=== PATIENT | female | born 1955 | race Caucasian/White ===

== ENCOUNTER 2020-04-28 07:26 | Outpatient (REF) | payer OTHER, SELFPAY ==
--- NOTE | 2020-04-28 07:32 | MM_ITS ---
EXAMINATION: MM SCREENING DIGITAL BREAST TOMOSYNTHESIS, BILATERAL CLINICAL INFORMATION: Screening. Asymptomatic. Status post right breast lumpectomy. COMPARISON: Mammography: October 05, 2018 and studies dating back to June 04, 2011 TECHNIQUE: Digital breast tomosynthesis is performed in both the craniocaudal and mediolateral oblique views along with computer-aided detection (CAD). Synthesized 2D images are generated from the tomosynthesis. FINDINGS: The breasts are heterogeneously dense, which may obscure small masses (ACR BI-RADS breast composition Category c). There are no significant masses, abnormal calcifications, or other abnormalities. Architectural distortion and clips from previous right breast surgery again noted. IMPRESSION: There are no significant changes from prior study. ASSESSMENT: BI-RADS 2: Benign RECOMMENDATION: Routine annual mammography screening. This patient's information was entered into a reminder system with a target due date for their next mammogram.
== END 2020-04-28 07:27 | disposition home or self-care (01) ==
LOC: HO.MAMMO 07:26
PROVIDERS: PCP Physician Assistant; Visit Provider Physician Assistant
DX: Z12.31 Encounter for screening mammogram for malignant neoplasm of breast (principal)
CPT/HCPCS: 77063; 77067

== ENCOUNTER 2020-12-22 14:17 | Outpatient (REF) | payer MEDICARE, SELFPAY ==
--- NOTE | ~2020-12-22 | XR_ITS ---
EXAMINATION: XR SHOULDER, RIGHT CLINICAL INFORMATION: Right shoulder pain COMPARISON: None TECHNIQUE: AP external rotation, Grashey, scapular Y, and axillary views of the right shoulder. FINDINGS: Bone alignment is normal. No fracture or dislocation is seen. The glenohumeral joint is normal. There is arthritis at the acromioclavicular joint. There is a clip in the right axilla. Soft tissues are otherwise unremarkable. XR/XR shoulder RT min 2V IMPRESSION: Arthritis at the acromioclavicular joint.
--- NOTE | ~2020-12-22 | US_ITS ---
EXAMINATION: US DIAGNOSTIC ULTRASOUND BREAST, RIGHT CLINICAL INFORMATION: Pain. COMPARISON: Mammography of same day and studies dating back to June 04, 2011. TECHNIQUE: Ultrasound of the breast is performed with real-time maurer scale imaging and color Doppler. FINDINGS: Targeted right breast ultrasound to region of pain in the retroareolar and 10:00 location performed. Scanning was performed at the 4:00 position where patient also had pain. No abnormal cystic or solid masses identified. No edematous change within the breast is seen. Other than for the surgical site no region of abnormal distal sound shadowing was appreciated.. Results are discussed with the patient at time of visit. US/US breast RT limited IMPRESSION: There are no significant changes from prior study. ASSESSMENT: BI-RADS 2: Benign RECOMMENDATION: 1. Patient should be managed based on the clinical impression. 2. Otherwise, routine annual screening mammography. .
--- NOTE | ~2020-12-22 | XR_ITS ---
EXAMINATION: XR CHEST CLINICAL INFORMATION: Chest pain COMPARISON: Previous chest x-ray November 2014 TECHNIQUE: 2 views of the chest were obtained. FINDINGS: The cardiac and mediastinal contours are stable. The lungs are clear. There is no pleural effusion or pneumothorax. There are degenerative changes of the thoracic spine and mild curvature of the midthoracic spine to the right. XR/XR chest 2V IMPRESSION: No evidence for acute disease in the chest.
--- NOTE | ~2020-12-22 | MM_ITS ---
EXAMINATION: MM DIAGNOSTIC DIGITAL BREAST TOMOSYNTHESIS, RIGHT Targeted right breast ultrasound CLINICAL INFORMATION: Right breast pain on the nipple. History of right breast cancer. COMPARISON: Mammography: 04/28/2020 and studies dating back to 06/04/2011. TECHNIQUE: Digital breast tomosynthesis is performed in both the craniocaudal and mediolateral oblique views along with computer-aided detection (CAD). Synthesized 2D images are generated from the tomosynthesis. Additional right exaggerated craniocaudal view performed. Targeted right breast ultrasound FINDINGS: The breasts are heterogeneously dense, which may obscure small masses (ACR BI-RADS breast composition Category c). Patient is status post previous right breast lumpectomy with clips and architectural distortion about the central inferior right breast. No new abnormal dominant mass or suspicious grouping of microcalcifications is identified. Targeted right breast ultrasound to region of pain in the retroareolar and 10 o'clock location performed. Scanning was performed at the 4 o'clock position where patient also had pain. No abnormal cystic or solid masses identified. No edematous change within the breast is seen. Other than for the surgical site no region of abnormal distal sound shadowing was appreciated.. Results are discussed with the patient at time of visit. MM/MM tomosynthesis diagnostic RT IMPRESSION: There are no significant changes from prior study. ASSESSMENT: BI-RADS 2: Benign RECOMMENDATION: 1. Patient should be managed based on the clinical impression. 2. Otherwise, routine annual screening mammography. This patient's information was entered into a reminder system with a target due date for their next mammogram.
== END 2020-12-22 14:18 | disposition home or self-care (01) ==
LOC: HO.MAMMO 14:17
PROVIDERS: PCP Physician Assistant; Visit Provider Internal Medicine Medical Oncology
DX: N64.4 Mastodynia (principal); R07.9 Chest pain, unspecified; M25.511 Pain in right shoulder; Z80.3 Family history of malignant neoplasm of breast
CPT/HCPCS: 71046; 73030; 76642; 77061; 77065

== ENCOUNTER 2021-10-26 10:38 | Outpatient (REF) | payer MEDICARE, SELFPAY ==
[2021-10-26 11:35] LABS: Hematocrit 47.6 % (37.0-47.0); Hemoglobin 15.1 g/dl (12.0-16.0); Mean Corpuscular HGB Conc 31.7 g/dl (31.0-35.0); Mean Corpuscular Hemoglobin 27.9 pg (27.0-33.0); Mean Corpuscular Volume 87.8 fL (80.0-98.0); Mean Platelet Volume 9.7 fL (9.4-12.3); Platelet Count 252 X10*3/uL (160-400); Red Blood Count 5.42 X10*6/uL (4.20-5.50); Red Cell Distribution Width 14.3 % (11.0-16.0); White Blood Count 5.7 X10*3/uL (4.8-10.8)
[2021-10-26 12:14] LABS: Creatinine Urine 113.49 mg/dL; Microalbum/Creatinine Ratio Ur 6.1 ug/mg cr
[2021-10-26 12:23] LABS: Alanine Aminotransferase 62 U/L (0-31); Albumin Level 4.4 g/dL (3.5-5.0); Alkaline Phosphatase 76 U/L (39-117); Anion Gap 14 (12-20); Aspartate Amino Transferase 38 U/L (5-31); Bilirubin Total 0.7 mg/dL (0.0-1.0); Blood Urea Nitrogen 8 mg/dL (9-16); Calcium 9.9 mg/dL (8.4-10.2); Carbon Dioxide 26 mmol/L (22-29); Chloride 107 mmol/L (96-108); Cholesterol 221 mg/dL; Estimated Glomerular Filt Rate > 60; Glucose Fasting 95 mg/dL (60-99); HDL Cholesterol 55 mg/dL; LDL Cholesterol Calculated 123 mg/dl; Potassium 5.2 mmol/L (3.3-5.1); Sodium 142 mmol/L (135-145); Total Protein 7.3 g/dL (6.5-8.0); Triglycerides 216 mg/dL
[2021-10-26 12:33] LABS: TSH reflex Free T4 1.05 uIU/mL (0.32-4.0)
== END 2021-10-26 10:39 | disposition home or self-care (01) ==
LOC: HO.LAB 10:38
PROVIDERS: PCP Physician Assistant; Visit Provider Physician Assistant
DX: I10 Essential (primary) hypertension (principal)
CPT/HCPCS: 36415; 80053; 80061; 82043; 84443; 85027

== ENCOUNTER 2021-11-22 08:40 | Outpatient (REF) | payer MEDICARE, SELFPAY ==
--- NOTE | ~2021-11-22 | MM_ITS ---
EXAMINATION: BONE DENSITOMETRY CLINICAL INDICATION: Asymptomatic menopausal state. COMPARISON: Baseline BD dated 05/14/2016. TECHNIQUE: Using a [employer] DXA System (software version: 13.1) manufactured by [employer], dual-energy x-ray absorptiometry was performed of the lumbar spine and left hip. The images are of good technical quality. Summary results are attached. FINDINGS: AP SPINE L1-L4: Current: BMD 0.953 g/cm2, Z-score -0.2, T-score -1.9, osteopenia, 6.0% increase from baseline (<5% change is not significant). Baseline: BMD 0.899 g/cm2. LEFT FEMUR, NECK: Current: BMD 0.639 g/cm2, Z-score -1.3, T-score -2.9, osteoporosis. Baseline: BMD 0.739 g/cm2. LEFT FEMUR, TOTAL: Current: BMD 0.745 g/cm2, Z-score -0.8, T-score -2.1, osteopenia, 11.2% decrease from baseline (<5% change is not significant). Baseline: BMD 0.839 g/cm2. IDENTIFIED RISK FACTORS: Early menopause, secondary osteoporosis. HISTORY OF FRACTURE: None listed. MEDICATIONS: Calcium or multivitamin. MM/XR DEXA axial skeleton IMPRESSION: 1. DIAGNOSIS: Osteoporosis based on the lowest T-score value of -2.9 in the femoral neck applying World Health Organization criteria. 2. 10-YEAR FRACTURE RISK PREDICTION, FRAX: Major osteoporotic fracture (clinical spine, forearm, hip or shoulder) 16.4%. Hip fracture 4.6%. 3. Treatment Recommendations: NOF guidelines recommend consideration for treatment in postmenopausal women and men age 50 and older presenting with the following: -A hip or vertebral (clinical or morphometric) fracture. -T-score less than or equal to -2.5 at the femoral neck or spine after appropriate evaluation to exclude secondary causes. -Low bone mass at the hip or spine and a 10-year fracture probability by FRAX of greater than or equal to 3% for hip fracture or greater than or equal to 20% for major osteoporotic fracture based on the [place] adapted WHO algorithm. 4. Other Recommendations: All treatment decisions require clinical judgment and consideration of individual patient factors, including patient preferences, comorbidities, previous drug use, risk factors not captured in the FRAX model (e.g. frailty, falls, vitamin D deficiency, increased bone turnover, interval significant decline in bone density) and possible under or overestimation of fracture risk by FRAX. Additional medical evaluation for secondary cause of low bone mineral density may be appropriate. FUTURE SCAN RECOMMENDATION: People with diagnosed cases of osteoporosis or at high risk for fracture should have regular bone mineral density tests. For patients eligible for Medicare, routine testing is allowed once every 2 years. The testing frequency can be increased to one year for patients who have rapidly progressing disease, those who are receiving or discontinuing medical therapy to restore bone mass, or have additional risk factors.
== END 2021-11-22 08:41 | disposition home or self-care (01) ==
LOC: HO.MAMMO 08:40
PROVIDERS: PCP Physician Assistant; Visit Provider Physician Assistant
DX: Z13.820 Encounter for screening for osteoporosis (principal); Z78.0 Asymptomatic menopausal state; M81.0 Age-related osteoporosis without current pathological fracture
CPT/HCPCS: 77080

== ENCOUNTER 2022-01-03 08:36 | Outpatient (REF) | payer MEDICARE, SELFPAY ==
--- NOTE | ~2022-01-03 | MM_ITS ---
EXAMINATION: MM SCREENING DIGITAL BREAST TOMOSYNTHESIS, BILATERAL CLINICAL INFORMATION: Screening. Asymptomatic. Status post right lumpectomy. COMPARISON: Mammography: December 22, 2020 and studies dating back to January 03, 2014 TECHNIQUE: Digital breast tomosynthesis is performed in both the craniocaudal and mediolateral oblique views along with computer-aided detection (CAD). Synthesized 2D images are generated from the tomosynthesis. FINDINGS: The breasts are heterogeneously dense, which may obscure small masses (ACR BI-RADS breast composition Category c). There are no new significant masses, abnormal calcifications, or other abnormalities. Architecture distortion from previous right breast surgery again seen. MM/MM tomosynthesis screening BI IMPRESSION: There are no significant changes from prior study. ASSESSMENT: BI-RADS 2: Benign RECOMMENDATION: Routine annual mammography screening. This patient's information was entered into a reminder system with a target due date for their next mammogram.
== END 2022-01-03 08:37 | disposition home or self-care (01) ==
LOC: HO.MAMMO 08:36
PROVIDERS: PCP Physician Assistant; Visit Provider Physician Assistant
DX: Z12.31 Encounter for screening mammogram for malignant neoplasm of breast (principal)
CPT/HCPCS: 77063; 77067

== ENCOUNTER 2022-04-24 07:53 | Outpatient (REF) | payer MEDICARE, SELFPAY ==
[2022-04-24 08:47] LABS: Hematocrit 45.1 % (37.0-47.0); Hemoglobin 14.5 g/dl (12.0-16.0); Mean Corpuscular HGB Conc 32.2 g/dl (31.0-35.0); Mean Corpuscular Hemoglobin 28.6 pg (27.0-33.0); Mean Platelet Volume 9.6 fL (9.4-12.3); Platelet Count 247 X10*3/uL (160-400); Red Blood Count 5.07 X10*6/uL (4.20-5.50); Red Cell Distribution Width 14.4 % (11.0-16.0); White Blood Count 5.8 X10*3/uL (4.8-10.8)
[2022-04-24 08:53] LABS: Estimated Average Glucose 117 mg/dL; Hemoglobin A1c % 5.7 %
[2022-04-24 09:12] LABS: Alanine Aminotransferase 35 U/L (0-31); Albumin Level 4.5 g/dL (3.5-5.0); Alkaline Phosphatase 79 U/L (39-117); Anion Gap 17 (12-20); Aspartate Amino Transferase 29 U/L (5-31); Bilirubin Total 0.4 mg/dL (0.0-1.0); Blood Urea Nitrogen 10 mg/dL (9-16); Calcium 9.7 mg/dL (8.4-10.2); Carbon Dioxide 28 mmol/L (22-29); Chloride 102 mmol/L (96-108); Cholesterol 209 mg/dL; Estimated Glomerular Filt Rate > 60; Glucose Fasting 103 mg/dL (60-99); HDL Cholesterol 58 mg/dL; LDL Cholesterol Calculated 113 mg/dl; Potassium 4.4 mmol/L (3.3-5.1); Sodium 143 mmol/L (135-145); Total Protein 7.1 g/dL (6.5-8.0); Triglycerides 193 mg/dL
[2022-04-24 09:36] LABS: TSH reflex Free T4 1.56 uIU/mL (0.32-4.0)
== END 2022-04-24 07:54 | disposition home or self-care (01) ==
LOC: HO.LAB 07:53
PROVIDERS: PCP Physician Assistant; Visit Provider Physician Assistant
DX: I10 Essential (primary) hypertension (principal); E87.5 Hyperkalemia
CPT/HCPCS: 36415; 80053; 80061; 83036; 84443; 85027

== ENCOUNTER 2023-01-22 07:47 | Outpatient (REF) | payer MEDICARE, SELFPAY ==
--- NOTE | ~2023-01-22 | MM_ITS ---
EXAMINATION: MM SCREENING DIGITAL BREAST TOMOSYNTHESIS, BILATERAL CLINICAL INFORMATION: Screening. Asymptomatic. Patient has a history of previously treated right breast cancer. COMPARISON: Mammography: This study is compared with prior exams dating back to 2019. TECHNIQUE: Digital breast tomosynthesis is performed in both the craniocaudal and mediolateral oblique views along with computer-aided detection (CAD). Synthesized 2D images are generated from the tomosynthesis. FINDINGS: There are scattered areas of fibroglandular density (ACR BI-RADS breast composition Category b). There are no significant masses, abnormal calcifications, or other abnormalities. There are postsurgical changes in the right breast and right axilla from prior cancer surgery. MM/MM tomosynthesis screening BI IMPRESSION: No mammographic evidence of malignancy. ASSESSMENT: BI-RADS BI-RADS 2 - Benign Findings RECOMMENDATION: Routine annual mammography screening. 1 year F/U This examination should not preclude the clinical evaluation of a suspicious palpable abnormality. This patient's information was entered into a reminder system with a target due date for their next mammogram.
== END 2023-01-22 07:48 | disposition home or self-care (01) ==
LOC: HO.MAMMO 07:47
PROVIDERS: PCP Physician Assistant; Visit Provider Physician Assistant
DX: Z12.31 Encounter for screening mammogram for malignant neoplasm of breast (principal)
CPT/HCPCS: 77063; 77067

== ENCOUNTER → 2023-01-22 08:00 | Outpatient (BNV) | payer MEDICARE, SELFPAY | PROVIDERS: PCP Physician Assistant; Visit Provider Radiology Diagnostic Radiology | DX: Z12.31 Encounter for screening mammogram for malignant neoplasm of breast (principal) | CPT/HCPCS: 77063; 77067 ==

== ENCOUNTER 2023-04-22 09:29 | Outpatient (REF) | payer MEDICARE, SELFPAY | END 2023-04-22 09:30 | disposition home or self-care (01) | LOC: HO.LAB 09:29 | PROVIDERS: PCP Physician Assistant; Visit Provider Physician Assistant | DX: I10 Essential (primary) hypertension (principal) | CPT/HCPCS: 36415; 80053; 80061; 84443; 85027 ==

== ENCOUNTER 2023-05-01 14:13 | Outpatient (AMB) | payer MEDICARE, SELFPAY ==
[2023-05-01 14:24] VITALS: BP 122/78; PULSE 95; RESP 16; O2SAT 97; BMI 23.8
--- NOTE | 2023-05-01 14:24 | A.OFFPC_ITS ---
Vital Signs 05/01/23 14:24 Height 5 ft 3 in Weight 134 lb 2 oz BMI 23.8 BP 122/78 Blood Pressure Location Lt brachial Position Sitting Respiration 16 Pulse 95 Pulse Source Pulse Oximeter Pulse Oximetry (%) 97 Oxygen Delivery Method Room Air Intake Visit Reasons: pe Intake Note: Patient is here today for a physical. Case Technician Required: No Accompanied by: Self / Same As Patient Allergies lisinopril Adverse Reaction (Unknown, Verified 05/01/23 14:34) Cough losartan Adverse Reaction (Intermediate, Uncoded 05/01/23 14:34) migraines Medication List - Last Reconciled 05/01/23 by Constantin Ray PA-C metoprolol succinate ER 50 mg PO DAILY 90 days omeprazole 20 mg PO DAILY 90 days Tobacco use date assessed: 11/04/22 Fall risk assessment: No Falls in past year Last assessed Fall Risk: 05/01/23 Dental Screening Dental Screen Date: 05/01/23 Did you have a dental visit in the last 12 months?: Yes Did you have a dental problem in the last 6 months where you did not have access to dental care?: No Was dental information given to patient?: Patient has dentist HPI pe HPI Details Patient is a 67-year-old female here today for follow-up visit.? Patient has a past medical history significant for hypertension, peptic ulcer disease, tinnitus. Concern--> reports having RUQ abd on intermittent basis. She reports her pain or recently resolved. We did discuss getting ultrasound of her abdomen to evaluate for gallstones the patient would like to hold off on this for now.. ..Tinnitus:? 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 Has had an audiological exam does report minor hearing loss in left ear. Has followed up with an ENT specialist though no recommendations made. .HTN:? Blood pressure today in office go od. Has discontinued the use of losartan which was likely giving her the migraines per day . is asymptomatic without any chest disc omfort, headaches, vision issues or palpitations.n .. ..Peptic ulcer:? Was found to have a pep tic ulcer many years ago and ever since been on omeprazole 20 mg.? .. . ?Mammogram: Done in January 2023 BI-RADS 1. ?.. ?Colonoscopy: 2020 - normal repeat 10 years ?.. ?Vaccines: Up-to-date with tetanus, needs Shingrix, up-to-date with flu vaccine and COVID vaccine Needs pneumonia vaccine PFSH Surgical History S/P lumpectomy of breast Family History Father COPD (chronic obstructive pulmonary disease) Mother Heart problem Social History (Updated 05/01/23 @ 14:33 by Constantin Ray PA-C) Housing: House Alcohol intake: current Alcohol intake frequency: a few times a month Alcohol type: beer and wine Patient Tobacco Use Status: Former Tobacco user e-Cigarette/Vaping Use: Never Used Second Hand Smoke Exposure: No service: No Current occupational status: employed and retired 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 Clarence Ruano, Sharon Tate, Rubin Davis and colleagues, with an educational taty from [employer]. Review of Systems Const Denies body aches, Denies chills, Denies excessive sweating, Denies fatigue, Denies fever(s) and Denies headache(s) Eyes Denies blurry vision ENT Denies dysphagia, Denies vertigo, Denies dizziness, Denies headache(s), Denies hearing loss and Denies tinnitus Card Denies chest pain, Denies chest pain with activity, Denies syncope, Denies irregular heart rhythm and Denies dyspnea Resp Denies chest congestion, Denies cough, Denies hemoptysis, Denies dyspnea and Denies wheezing GI Denies abdominal pain, Denies melena, Denies hematochezia, Denies coffee ground emesis, Denies dysphagia, Denies diarrhea, Denies nausea and Denies vomiting Denies urinary frequency, Denies dysuria, Denies urinary hesitancy and Denies urinary urgency Musc Denies arthralgias, Denies limited range of motion, Denies muscle cramps and Denies muscle weakness Skin/Breast Denies rash and Denies skin ulcer Neuro Denies Abnormal speech present, Denies confusion, Denies vertigo, Denies dizziness, Denies syncope, Denies headache(s), Denies memory loss and Denies se izure-like activity Psych Denies anxiety, Denies confusion, Denies depression, Denies memory loss, Denies panic attacks and Denies paranoia Endo Denies excessive sweating, Denies fatigue, Denies flushing, Denies polydipsia and Denies polyuria Aller/Immun Denies wheezing Physical exam (Primary Care) Vital Signs: Last Vital Signs Pulse 95 05/01/23 14:24 Resp 16 05/01/23 14:24 BP 122/78 05/01/23 14:24 Pulse Ox 97 05/01/23 14:24 Oxygen Delivery Method Room Air 05/01/23 14:24 BMI result Body Mass Index 23.8 Tobacco/Smoking Status: Tobacco use Status Tobacco use date assessed 11/04/22 05/01/23 14:26 Patient Tobacco Use Status Former Tobacco user 05/01/23 14:26 Tobacco use type 05/01/22 08:49 e-Cigarette/Vaping Use Never Used 05/01/23 14:26 Thrive Assessment: Date of Thrive Assessment Date Thrive assessed 11/04/22 05/01/23 14:26 Const General: cooperative, comfortable, no acute distress, alert and awake; No confusion Orientation/consciousness: oriented to person, oriented to place, patient oriented x3 and No confusion HENMT Head: Yes normocephalic Ears: external ears normal and TM's normal bilaterally Face and sinus: No sinus tenderness Mouth: Normal oral and palatal mucosa present and tongue normal Teeth and gingiva: dentition normal and gingiva normal Throat: Yes posterior oropharynx normal, Yes tonsils normal and Yes uvula midline Eyes Conjunctivae: conjunctivae normal Sclerae: sclerae normal Pupils: Equal, round and reactive pupils present EOM: EOMs intact bilaterally Direct Ophthalmoscopy: No no photophobia Neck Neck: Yes no lymphadenopathy, No tender and Yes no JVD Thyroid: Thyroid normal Carotids: no bruits Chest Chest palpation & inspection: no tenderness Resp Effort & Inspection: normal respiratory effort, no audible wheezes, not labored and no stridor Auscultation: no crackles, no rales, no rhonchi and no wheezes Cardio Jugular venous distension: no JVD Rate: regular rate, not bradycardic and not tachycardic Rhythm: regular rhythm Bruits: no carotid bruits Peripheral pulses: Peripheral pulses 2+ throughout GI Inspection: Yes normal to inspection, No abdominal wall ecchymosis and No visible herniation Palpation (GI): Soft to palpation, nontender, no guarding, not rigid and No hepatosplenomegaly present Auscultation: normoactive bowel sounds General: Yes no CVA tenderness Back/Spine/Pelvis Back: no CVA tenderness and No back tenderness Cervical Spine: cervical ROM normal Thoracic/Lumbar Spine: thoracic and lumbar spine normal to inspection, straight leg raise negative bilaterally, No thoraco-lumbar ROM limited and No lumbar spinal tenderness Skin Lesions: no lesions Rashes: no rashes Wounds: no wounds Neuro General: oriented to person, oriented to place, patient oriented x3, CN's II-XI intact bilaterally and No confusion Cranial nerves: Yes Equal, round and reactive pupils present and Yes Normal accommodation reflex present Cognition (Neuro): normal cognition Speech: No Abnormal speech present Gait exam (Neuro): Normal gait present Motor exam (neuro): 5/5 motor strength present throughout Extrem Right upper extremity: full ROM; no cyanosis Left upper extremity: full ROM; no cyanosis Right lower extremity: no edema Left lower extremity: no edema Psych Appearance: grossly normal Mental Status: mental status grossly normal Affect: normal affect Attitude: cooperative Thought process: Normal thought process present Assessment and Plan Assessment & Plan (1) Annual physical exam: Code(s): Z00.00 - Encounter for general adult medical examination without abnormal findings (2) HTN (hypertension): Code(s): I10 - Essential (primary) hypertension Qualifiers: Hypertension type: primary hypertension Qualified Code(s): I10 - Essential (primary) hypertension Plan: Blood pressure today in office acceptable. Will continue current dose of antihypertensives. Goal blood pressure to be below 140/90 (3) PUD (peptic ulcer disease): Code(s): K27.9 - Peptic ulcer, site unspecified, unspecified as acute or chronic, without hemorrhage or perforation Plan: Patient has history peptic ulcer disease thus continues on PPI therapy with good effect on reducing her GERD symptoms. She denies any black tarry stools. She reports having recurrent GERD symptoms off PPI therapy. (4) Tinnitus: Code(s): H93.19 - Tinnitus, unspecified ear Qualifiers: Laterality: bilateral Qualified Code(s): H93.13 - Tinnitus, bilateral Plan: Patient's tinnitus still present. Has followed up with ENT though no recommendations given. Unclear etiolog. Advised on some homeopathic techniques to reduce tinnitus (5) Borderline high cholesterol: Code(s): E78.9 - Disorder of lipoprotein metabolism, unspecified Plan: Patient's most recent fasting lipid panel showing borderline high total cholesterol and slightly elevated LDL. HDL high as well. Will continue to work on low-cholesterol diet. Orders: Orders Complete Blood Count no Diff Today K27.9 - Peptic ulcer, site unspecified, unspecified as acute or chronic, without hemorrhage or perforation Microalbumin, Random (w Creat) Today I10 - Essential (primary) hypertension Comprehensive Dickens. Panel Fast Today I10 - Essential (primary) hypertension Lipid Panel Today E78.9 - Disorder of lipoprotein metabolism, unspecified Coding Level of Care Code Est Pt Prev Care >65y(23661) Diagnoses Annual physical exam Z00.00 Primary hypertension I10 Hypertension type: primary hypertension PUD (peptic ulcer disease) K27.9 Tinnitus of both ears H93.13 Laterality: bilateral Borderline high cholesterol E78.9
== END 2023-05-01 14:44 | disposition home or self-care (01) ==
PROVIDERS: Visit Provider Physician Assistant
DX: I10 Essential (primary) hypertension (principal); K27.9 Peptic ulcer, site unspecified, unspecified as acute or chronic, without hemorrhage or perforation; H93.13 Tinnitus, bilateral; E78.9 Disorder of lipoprotein metabolism, unspecified
CPT/HCPCS: 99214

== ENCOUNTER 2024-01-30 07:55 | Outpatient (REF) | payer MEDICARE, SELFPAY ==
--- NOTE | ~2024-01-30 | MM_ITS ---
EXAMINATION: MM SCREENING DIGITAL BREAST TOMOSYNTHESIS, BILATERAL CLINICAL INFORMATION: Screening. Asymptomatic. The patient has a history of treated right breast cancer. COMPARISON: Mammography: This study is compared with prior exams dating back to 2016. TECHNIQUE: Digital breast tomosynthesis is performed in both the craniocaudal and mediolateral oblique views along with computer-aided detection (CAD). Synthesized 2D images are generated from the tomosynthesis. FINDINGS: There are scattered areas of fibroglandular density (ACR BI-RADS breast composition Category b). There are no significant masses, abnormal calcifications, or other abnormalities. Postsurgical changes are present in the deep third of the right breast and right axilla. MM/MM tomosynthesis screening BI IMPRESSION: No mammographic evidence of malignancy. ASSESSMENT: BI-RADS BI-RADS 2 - Benign Findings RECOMMENDATION: Routine annual mammography screening. 1 year F/U This examination should not preclude the clinical evaluation of a suspicious palpable abnormality. This patient's information was entered into a reminder system with a target due date for their next mammogram.
== END 2024-01-30 07:56 | disposition home or self-care (01) ==
LOC: HO.MAMMO 07:55
PROVIDERS: PCP Physician Assistant; Visit Provider Physician Assistant
DX: Z12.31 Encounter for screening mammogram for malignant neoplasm of breast (principal)
CPT/HCPCS: 77063; 77067

== ENCOUNTER → 2024-01-30 08:00 | Outpatient (BNV) | payer MEDICARE, SELFPAY | PROVIDERS: PCP Physician Assistant; Visit Provider Radiology Diagnostic Radiology | DX: Z12.31 Encounter for screening mammogram for malignant neoplasm of breast (principal) | CPT/HCPCS: 77063; 77067 ==

== ENCOUNTER 2024-08-03 13:18 | Outpatient (AMB) | payer MEDICARE, SELFPAY ==
--- NOTE | 2024-08-03 13:20 | MHC.PC.OV ---
Vital Signs 08/03/24 13:23 Height 5 ft 3 in Weight 140 lb 2 oz BMI 24.8 BP 132/82 Blood Pressure Location Lt brachial Position Sitting Pulse 88 Pulse Source Pulse Oximeter Temp 97.1 F Temp Source Skin Pulse Oximetry (%) 97 Oxygen Delivery Method Room Air Intake Visit Reasons: NEOS-Knee surgery Intake Note: Patient is here to follow up on Referral to Cardio due to abnormal EKG. Compacting Machine Operator/Tender Required: No Advertising Assistant: Not Required per policy Accompanied by: Self / Same As Patient Allergies lisinopril Adverse Reaction (Unknown, Verified 08/03/24 13:30) Cough losartan Adverse Reaction (Intermediate, Uncoded 08/03/24 13:30) migraines Medication List - Last Reconciled 08/03/24 by Constantin Ray PA-C metoprolol succinate ER 50 mg PO DAILY 90 days omeprazole 20 mg PO DAILY 90 days rizatriptan take 1 tab at onset of headache; if no relief may repeat 1 tab after at least 2 hrs; max = 3 tabs/24 hr PO 30 days Tobacco use date assessed: 08/03/24 Fall risk assessment: No Falls in past year Last assessed Fall Risk: 08/03/24 Dental Screening Dental Screen Date: 08/03/24 Did you have a dental visit in the last 12 months?: No Did you have a dental problem in the last 6 months where you did not have access to dental care?: No Was dental information given to patient?: No HPI NEOS-Knee surgery HPI Details Patient is a 69-year-old female here today for routine annual physical. Patient is under evaluation for and knee surgery. Patient has a past medical history significant for hypertension, peptic ulcer disease, tinnitus Under preop evaluation she was found to have a junctional rhythm and was advised to follow up with a travel guide for preop clearance. Otherwise patient denies any syncopal episodes, shortness of breath on exertion, chest pain or dizziness.. .HTN:? Blood pressure today in office good. Has discontinued the use of losartan which was likely giving her the migraines per day . is asymptomatic without any chest discomfort, headaches, vision issues or palpitations.n .. ..Peptic ulcer:? Was found to have a peptic ulcer many years ago and ever since been on omeprazole 20 mg with good effect on reducing any epigastric pain or discomfort.? ?Mammogram: Done in January 2024 BI-RADS 1. ?.. ?Colonoscopy: 2020 - normal repeat 10 years ?.. ?Vaccines: Up-to-date with tetanus, needs Shingrix, up-to-date with flu vaccine and COVID vaccine Needs pneumonia vaccine PFSH Surgical History S/P lumpectomy of breast Family History Father COPD (chronic obstructive pulmonary disease) Mother Heart problem Social History (Updated 08/03/24 @ 13:40 by Constantin Ray PA-C) Housing: House Alcohol intake: current Alcohol intake frequency: a few times a week Alcohol type: beer and wine Patient Tobacco Use Status: Former Tobacco user e-Cigarette/Vaping Use: Never Used Second Hand Smoke Exposure: Yes service: No Current occupational status: employed and retired 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 1. Little interest or pleasure in doing things: not at all 2. Feeling down, depressed, or hopeless: not at all 3. Trouble falling or staying asleep, or sleeping too much: not at all 4. Feeling tired or having little energy: not at all 5. Poor appetite or overeating: not at all 6. Feeling bad about yourself - or that you are a failure or have let yourself or your family down: not at all 7. Trouble concentrating on things, such as reading the newspaper or watching television: not at all 8. Moving or speaking so slowly that other people could have noticed. Or the opposite - being so fidgety or restless that you have been moving around a lot more than usual: not at all 9. Thoughts that you would be better off or of hurting yourself in some way: not at all Total score: 0 Depression Screening Interpretation: Negative Depression Screening Done: Yes 52943 - PHQ-9 Billing: Yes Source: Developed by Drs. Clarence Ruano, Sharon Tate, Rubin Davis and colleagues, with an educational taty from [employer]. Thrive Questionnaire Date Thrive assessed: 08/03/24 I am a: Patient What is your living situation today?: I have a steady place to live Within the past 12 months, did the food you bought not last and you didn't have the money to get more?: Never true Within the past 12 months, did you worry whether your food would run out before you got money to buy more?: Never true Do you have trouble paying for medicines?: No Do you have trouble getting transportation to medical appointments?: No Do you have trouble paying your heating and electricity bill?: No Do you have trouble taking care of your child, family member or friend?: No Do you have trouble with day-to-day activities such as bathing, preparing meals, shopping, managing finances, etc.?: No Are you currently unemployed and looking for a job?: No Are you interested in more education?: No Please select the resources that you would like help with: None Currently or been in a relationship where the following occur: No concerns reported THRIVE Score: 0 AUDIT C Alcohol Use Questionnaire (AUDIT-C) 1. How often do you have a drink containing alcohol?: Monthly or less 2. How many drinks containing alcohol do you have on a typical day when you are drinking?: 1 or 2 3. How often do you have six or more drinks on one occasion?: Less than monthly Total Score: 2 PASCUAL-7 AMB Questionnaire PASCUAL-7 Date PASCUAL - 7 assessed: 08/03/24 Feeling nervous, anxious, or on edge: 0 = Not at all Not being able to stop or control worryin = Not at all Worrying too much about different things: 0 = Not at all Trouble relaxin = Not at all Being so restless that it is hard to sit still: 0 = Not at all Becoming easily annoyed or irritable: 0 = Not at all Feeling afraid as if something awful might happen: 0 = Not at all Total PASCUAL-7 score (0-4 normal; 5-9 mild; 10-14 moderate; 15-21 severe): 0 Source: Developed by Sharon Gomez Kurt Kroenke and colleagues, with an educational taty from [employer]. PASCUAL-7 Assessment Billing PASCUAL-7 Assessment Tool: PASCUAL-7 Assessment 60176 Review of Systems Const Denies body aches, Denies chills, Denies excessive sweating, Denies fatigue, Denies fever(s) and Denies headache(s) Eyes Denies blurry vision ENT Denies dysphagia, Denies vertigo, Denies dizziness, Denies headache(s), Denies hearing loss and Denies tinnitus Card Denies chest pain, Denies chest pain with activity, Denies syncope, Denies irregular heart rhythm and Denies dyspnea Resp Denies chest congestion, Denies cough, Denies hemoptysis, Denies dyspnea and Denies wheezing GI Denies abdominal pain, Denies melena, Denies hematochezia, Denies coffee ground emesis, Denies dysphagia, Denies diarrhea, Denies nausea and Denies vomiting Denies urinary frequency, Denies dysuria, Denies urinary hesitancy and Denies urinary urgency Musc Denies arthralgias, Denies limited range of motion, Denies muscle cramps and Denies muscle weakness Skin/Breast Denies rash and Denies skin ulcer Neuro Denies Abnormal speech present, Denies confusion, Denies vertigo, Denies dizziness, Denies syncope, Denies headache(s), Denies memory loss and Denies seizure-like activity Psych Denies anxiety, Denies confusion, Denies depression, Denies memory loss, Denies panic attacks and Denies paranoia Endo Denies excessive sweating, Denies fatigue, Denies flushing, Denies polydipsia and Denies polyuria Aller/Immun Denies wheezing Physical exam (Primary Care) Vital Signs: Last Vital Signs Temp 97.1 F 08/03/24 13:23 Pulse 88 08/03/24 13:23 BP 132/82 08/03/24 13:23 Pulse Ox 97 08/03/24 13:23 Oxygen Delivery Method Room Air 08/03/24 13:23 BMI result Body Mass Index 24.8 Tobacco/Smoking Status: Tobacco use Status Tobacco use date assessed 08/03/24 08/03/24 13:25 Patient Tobacco Use Status Former Tobacco user 08/03/24 13:40 Tobacco use type 05/01/22 08:49 e-Cigarette/Vaping Use Never Used 08/03/24 13:40 PHQ-9: PHQ-9 Score PHQ-9: Total score 0 08/03/24 13:36 Depression Screening Interpretation: Negative Thrive Assessment: Date of Thrive Assessment Date Thrive assessed 08/03/24 08/03/24 13:25 Currently or been in a relationship where the following occur: No concerns reported Const General: cooperative, comfortable, no acute distress, alert and awake; No confusion Orientation/consciousness: oriented to person, oriented to place, patient oriented x3 and No confusion HENMT Head: Yes normocephalic Ears: external ears normal and TM's normal bilaterally Face and sinus: No sinus tenderness Mouth: Normal oral and palatal mucosa present and tongue normal Teeth and gingiva: dentition normal and gingiva normal Throat: Yes posterior oropharynx normal, Yes tonsils normal and Yes uvula midline Eyes Conjunctivae: conjunctivae normal Sclerae: sclerae normal Pupils: Equal, round and reactive pupils present EOM: EOMs intact bilaterally Direct Ophthalmoscopy: No no photophobia Neck Neck: Yes no lymphadenopathy, No tender and Yes no JVD Thyroid: Thyroid normal Carotids: no bruits Chest Chest palpation & inspection: no tenderness Resp Effort & Inspection: normal respiratory effort, no audible wheezes, not labored and no stridor Auscultation: no crackles, no rales, no rhonchi and no wheezes Cardio Jugular venous distension: no JVD Rate: regular rate, not bradycardic and not tachycardic Rhythm: regular rhythm Bruits: no carotid bruits Peripheral pulses: Peripheral pulses 2+ throughout GI Inspection: Yes normal to inspection, No abdominal wall ecchymosis and No visible herniation Palpation (GI): Soft to palpation, nontender, no guarding, not rigid and No hepatosplenomegaly present Auscultation: normoactive bowel sounds General: Yes no CVA tenderness Back/Spine/Pelvis Back: no CVA tenderness and No back tenderness Cervical Spine: cervical ROM normal Thoracic/Lumbar Spine: thoracic and lumbar spine normal to inspection, straight leg raise negative bilaterally, No thoraco-lumbar ROM limited and No lumbar spinal tenderness Skin Lesions: no lesions Rashes: no rashes Wounds: no wounds Neuro General: oriented to person, oriented to place, patient oriented x3, CN's II-XI intact bilaterally and No confusion Cranial nerves: Yes Equal, round and reactive pupils present and Yes Normal accommodation reflex present Cognition (Neuro): normal cognition Speech: No Abnormal speech present Gait exam (Neuro): Normal gait present Motor exam (neuro): 5/5 motor strength present throughout Extrem Right upper extremity: full ROM; no cyanosis Left upper extremity: full ROM; no cyanosis Right lower extremity: no edema Left lower extremity: no edema Psych Appearance: grossly normal Mental Status: mental status grossly normal Affect: normal affect Attitude: cooperative Thought process: Normal thought process present Coding Level of Care Code Est Pt Prev Care >65y(40860) Diagnoses Annual physical exam Z00.00 Junctional rhythm I49.8 Pre-op evaluation Z01.818 Borderline high cholesterol E78.9 Additional Codes PHQ-9 - 13710 - PHQ-9 Billing: Yes ([id number]) PASCUAL-7 Assessment Billing - PASCUAL-7 Assessment Tool: PASCUAL-7 Assessment 96570 ([id number]) Assessment & Plan Assessment & Plan (1) Annual physical exam: Code(s): Z00.00 - Encounter for general adult medical examination without abnormal findings Category: Medical Plan: As per HPI (2) Junctional rhythm: Code(s): I49.8 - Other specified cardiac arrhythmias Category: Medical Plan: Was found to have a junctional rhythm on EKG during her preop for total knee arthroplasty. Needs cardiology evaluation and clearance for her total knee arthroplasty. Will place stat referral to Cardiology for evaluation and cardiac clearance. (3) Pre-op evaluation: Code(s): Z01.818 - Encounter for other preprocedural examination Category: Medical Plan: As above From a primary care point of view patient is cleared for elective total knee arthroplasty. She will need cardiac clearance due to noted junctional EKG rhythm. Otherwise most recent labs and in vitals today stable. (4) Borderline high cholesterol: Code(s): E78.9 - Disorder of lipoprotein metabolism, unspecified Category: Medical Plan: Patient has a history borderline cholesterol. Has been working on dietary modifications. Unfortunately has not been able to be physically active due to her chronic knee pain. She anticipates knee replacement. Otherwise total cholesterol goal to be below 200 and LDL to be below 130 Orders: Orders Lipid Panel 08/03/24 E78.9 - Disorder of lipoprotein metabolism, unspecified Comprehensive [place]. Panel Fast 08/03/24 I10 - Essential (primary) hypertension Complete Blood Count no Diff 08/03/24 I10 - Essential (primary) hypertension Microalbumin, Random (w Creat) 08/03/24 I10 - Essential (primary) hypertension Referrals Cardiology Referral I49.8 - Other specified cardiac arrhythmias
[2024-08-03 13:23] VITALS: BP 132/82; PULSE 88; TEMP 36.2; O2SAT 97; BMI 24.8
--- OUTSIDE RECORDS SUMMARY | 2024-08-03 15:01 | XMS_ITS | Continuity of Care Document ---
[facility] 2nd floor Address [address] [place] [address] Care Team Providers Care Pool Manager Name Role Phone TIERA POWERS Referring Provider TIERA POWERS Primary Care Provider Assessment Encounter Date Assessment Date Assessment LastModified by Organization Details LastModified Time 07/30/2024 07/30/2024 Patient scheduled for an H and P today prior to having right knee arthroplasty with Dr. Hamlin. She was found to have a junctional rhythm during PCP clearance. She will need to be cleared by linux security administrator prior to proceeding. The earliest she can get into her linux security administrator is in 3 months. She will discuss with PCP about referral to a different linux security administrator to try to get in sooner. This H and P was not done as surgery will need to be postponed to unknown date after cardiology clearance. [email or web address] Not available 07/30/2024 14:23:05 Plan of Treatment Reminders Order Date Submit Date Provider Last Modified By Organization Details Last Modified Time Details Appointments None record ed. Lab None record ed. Referral None record ed. Procedures None record ed. Surgeries None record ed. Imaging None record ed. Medication Orders None record ed. Patient TargetsNo targets recorded. Patient InstructionsNo instructions recorded. Reason for Referral None Reported. Problems Name Problem SNOMED Code Status Onset Date Resolution Date Notes Provider Name and Address Organization Details Recorded Time No complaint s 994624971 Active Status: 'I'; Not Available [facility] 4 09:18:43 Pain of right knee joint 051939580454 100 Active 2023 jorge yi [place] - [facility] 4 09:05:43 Osteoarth ritis of right knee joint 107850905685 100 Active 2023 Jamarcus Hamlin MD [address] [facility], [place], [address] , [facility] 4 13:05:35 Idiopathi c osteoarth ritis 084434189 Active 2017 Problem Code: M17.12; Problem Code Type: ICD-10; Status: 'A'; Not Available [facility] 4 11:58:16 Problem Notes None recorded. Procedures Surgical History Date Name Laterality Status Provider Name and Address Organization Details Recorded Time 4 17488 Therapeutic Exercise (1:1) completed Genet Aguirre DPT [address], [place], [address], [facility] 07/01/2024 08:33:35 4 04137: Low complexity PT Eval completed Genet Aguirre DPT [address], [place], [address], [facility] 07/01/2024 08:34:01 4 G8417 BMI Above Upper Parameters, F/U Documented completed Genet Aguirre DPT [address], [place], [address], [facility] 07/01/2024 08:33:58 4 G8427 Current Medication Documented completed Genet Aguirre DPT [address], [place], [address], [facility] 07/01/2024 08:33:55 4 Sports Knee 4&1 completed Stefania Baumann PA-C [address], [place], [address], [facility] 04/09/2024 09:16:06 4 Sports Knee 4&1 completed Stefania Baumann PA-C [address], [place], [address], [facility] 01/05/2024 15:30:02 4 Sports Knee 4&1 completed Stefania Baumann PA-C [address], [place], [address], [facility] 09/29/2023 15:52:37 8 Knee Surgery completed GABRIELLE SILVERIO [facility] 01/06/2024 09:01:46 Imaging Results None recorded. Procedure Notes None recorded. Medical Equipment None Reported. Allergies No known drug allergies Medications Name Sig Start Date Stop Date Status Note LastModified by Organization Details LastModified Time losartan 50 mg tablet TAKE 1 TABLET BY MOUTH DAILY. 01/04 completed Not Available Not Available Not Available amoxicillin 500 mg capsule TAKE 4 CAPSULES BY MOUTH ONE HOUR BEFORE APPOINTME NT 04/09 completed Not Available Not Available Not Available metoprolol succinate ER 50 mg tablet,exte nded release 24 hr TAKE ONE TABLET BY MOUTH EVERY DAY active Not Available Not Available No t Available sumatriptan 25 mg tablet FOR 30 DAYS; TAKE 1 TABLET AT ONSET OF HEADACHE; IF NO RELIEF MAY REPEAT 1 TABLET AFTER AT LEAST 2 HOURS; MAX = 4 TABS/24 HOURS. 01/05 completed Not Available Not Available Not Available rizatriptan 10 mg tablet TAKE 1 TABLET BY MOUTH AT ONSET OF HEADACHE. IF NO RELIEF MAY REPEAT 1 TABLET AFTER AT LEAST 2 HOURS .MAXIMUM 3 TABLETS IN 24 HOURS . active Not Available Not Available No t Available omeprazole 20 mg capsule,del ayed release TAKE ONE CAPSULE BY MOUTH EVERY DAY active Not Available Not Available No t Available Vitals Date Recorded Body height Body mass index (BMI) Body weight Provider Name and Address Organization Details Last Updated DateTime 07/30/2024 156.85 cm 25.6 kg/m2 57543.34 g IRIS RODRIGUEZ [facility] 07/30/2024 13:08:29 Social History Question Answer Notes LastModified by Organizat ion Details LastModified Time Tobacco Smoking Status Former Smoker GABRIELLE yi [facility] 01/06/2024 09:01:46 How Many Times Per Week Do You Consume Alcohol? 3-4 Times Per Week Information not available 01/06/2024 Do You Or Have You Ever Used E-cigarettes Or Vape? Never Used Electronic Cigarettes Information not available 01/06/2024 When Did You Quit Smoking? 16+yearssincody wheat Information not available 01/06/2024 What Is Your Relationship Status? Domestic Partner Information not available 01/06/2024 Do You Use Any Illicit Or Recreational Drugs? No Information not available 01/06/2024 How Many Years Have You Smoked Tobacco? 12 Information not available 01/06/2024 Do You Or Have You Ever Used Any Other Forms Of Tobacco Or Nicotine? No Information not available 01/06/2024 Sex: Unknown Functional Status None recorded. Mental Status None recorded. Family History Nothing Reported. Medical History Condition Response Cancer Y Gynecological HistoryNo gynecological history recorded. Obstetrics History GPAL:G 0 P 0 0 0 0 Past Encounters Encounter ID Performer Location Encounter Start Date Encounter Closed Date Diagnosis/Indication Diagnosis SNOMED-CT Code Diagnosis ICD10 Code Diagnosis Note [id number] [facility] [address] [place] [address] 06/30/2024 15:58:46 06/30/2024 16:36:24 Osteoarthritis of knee 952301336 M17.11 [id number] Mari Shine, [employer] [facility] [address] [place] [address] 07/30/2024 12:53:17 07/30/2024 14:31:23 Osteoarthritis of right knee joint 4178478661 78137 M17.11 Health Concerns Section Related Observation LastModified by Organization Detai ls LastModified Time None Recorded Concern Status LastModified by Organization Details LastModified Time None Recorded Payers Encounter Date Sequence Insurance Name Policy Number Policy Ferguson Covered Member ID Ferguson Member ID Guarantor Name 07/30/2024 2 [place] [id number] Azalea Early [id number] Azalea Early 07/30/2024 1 [place] [employer] Azalea Roe Early [id number] Azalea Early OBGyn Episode No OBEpisode recorded.
== END 2024-08-03 13:58 | disposition home or self-care (01) ==
PROVIDERS: PCP Physician Assistant; Visit Provider Physician Assistant
DX: I49.8 Other specified cardiac arrhythmias (principal); E78.9 Disorder of lipoprotein metabolism, unspecified; Z01.818 Encounter for other preprocedural examination

== ENCOUNTER → 2024-08-03 13:18 | Outpatient (BNVA) | payer MEDICARE, SELFPAY | PROVIDERS: PCP Physician Assistant; Visit Provider Physician Assistant | DX: Z01.818 Encounter for other preprocedural examination (principal); I49.8 Other specified cardiac arrhythmias; E78.9 Disorder of lipoprotein metabolism, unspecified; Z87.891 Personal history of nicotine dependence | CPT/HCPCS: 96127; 99212 ==

== ENCOUNTER 2025-02-04 07:51 | Outpatient (REF) | payer MEDICARE, SELFPAY ==
--- OUTSIDE RECORDS SUMMARY | 2025-02-04 07:54 | XMS_ITS | Patient Health Record ---
Author Organization [facility] Address [address] [place] [address] Care Team Providers Care Waterway Traffic Checker Name Role Phone ALISON EVANS Primary Care Provider Clarence Flor Unavailable [phone] Reason For Referral No Information Medications Medication SIG (Take, Route, Frequency, Duration) Notes Start Date End Date Status Advil 200 MG 1 tablet with food or milk as needed Orally prn Active Metro 7 DAYS ONLY-started 08/12/19 Active Cipro 500 MG 1 tablet Orally every 12 hrs 7 DAYS ONLY-started 08/12/19 Active Omeprazole 20 MG TAKE ONE CAPSULE BY MOUTH EVERY MORNING for 30 Active Multivitamin Adults - as directed Orally Active Losartan Potassium 50 MG TAKE ONE TABLET BY MOUTH EVERY DAY Oral for 30 Active Metoprolol Succinate ER 50 MG TAKE ONE TABLET BY MOUTH EVERY DAY Oral for 30 Active Immunizations Vaccine Route Administration Date Status Comme nts Influenza Unknown 04/13/2019 Administered Social History Tobacco Use: Social History Observation Description Date Details (start date - stop date) Former Smoker NA - NA Tobacco Use/Smoking Question Answer Notes Patient is a former smoker How long has it been since you last smoked? > 10 years Alcohol Screen Question Answer Notes Did you have a drink contain ing alcohol in the past year? Yes How often did you have a dri nk containing alcohol in the past year? 4 or more times a week (4 points) How many drinks did you have on a typical day when you were drinking in the past year? 1 or 2 drinks (0 point) How often did you have 6 or more drinks on one occasion in the past year? Never (0 point) Points 4 Interpretation Positive Section Notes: Nonsmoker; 1-2 glasses of wi ne QD Problems Problem Type SNOMED Code ICD Code Onset Dates Problem Status W/U Status Risk Notes Problem 550879994 Encounter for screening for malignant neoplasm of colon (Z12.11) Active confirmed Problem 218693309 Generalized abdominal pain (R10.84) Active confirmed Problem 02487510 Esophageal stricture (K22.2) Active confirmed Problem 11992704 Erosive esophagitis (K22.10) Active confirmed Problem 393505878 Abdominal pain, left lower quadrant (R10.32) Active confirmed Problem 50037700398404530 Abnormal gallbladder ultrasound (R93.2) Active confirmed Problem 550244234 Abnormal barium swallow (R93.3) Active confirmed Problem 45308399 Esophageal dysphagia (R13.10) Active confirmed Encounters Encounter Location Date Provider Diagnosis [facility] [address] [place] [address] 04/15/2024 Clarence Clark Plan Of Treatment Pending Test Test Name Order Date NUC HIDA SCAN 09/05/2019 Future Test Test Name Order Date COLONOSCOPY 08/13/2019 UPPER GI ENDOSCOPY [place] DILATION OF ESOPH 12/18/2019 Insurance Providers Payer Name Payer Address Payer Phone Subscriber Number Group Number Insured Name Patient Relationship to Insured Coverage Start Date Coverage End Date [facility] [address] [place] [phone] [id number] EARLY, KADE Self - patient is the insured Medical (General) History Medical History History ICD Code Denies DE,DM,CVA,Lung disease,renal dise ase Breast cancer 2011--with sophia nellie as below, XRT, and chemo-Dr. Madden--chemo affected the heart-sees Dr. Andres Hypertension Neg. screening colonosccpy in 2008--mild diverticulosis Surgical History Surgery Date(Month/Year) Knee replacement on the left 2018 Cataract surgery both eyes Right breast lumpectomy as above
== END 2025-02-04 07:52 | disposition home or self-care (01) ==
LOC: HO.MAMMO 07:51
PROVIDERS: PCP Physician Assistant; Visit Provider Physician Assistant
DX: Z12.31 Encounter for screening mammogram for malignant neoplasm of breast (principal)
CPT/HCPCS: 77063; 77067

== ENCOUNTER → 2025-02-04 08:00 | Outpatient (BNV) | payer MEDICARE, SELFPAY | PROVIDERS: PCP Physician Assistant; Visit Provider Internal Medicine | DX: Z12.31 Encounter for screening mammogram for malignant neoplasm of breast (principal) | CPT/HCPCS: 77063; 77067 ==